=== PATIENT | female | born 1965 | race Caucasian/White ===

== ENCOUNTER 2019-03-26 | Emergency (ER) | payer SELFPAY ==
[2019-03-26] MEDS ORDERED: METOPROL TAR25 MG PO (16:29)
[2019-03-26] MEDS ORDERED: ESCITALOPRAM OX10 MG PO (16:30)
[2019-03-26] MEDS ORDERED: XANAX0.25 MG PO (16:30)
[2019-03-26] MEDS ORDERED: SYMBICORT1 AE1 IN (16:31)
[2019-03-26] MEDS ORDERED: LOSARTAN POTASS25 MG PO (16:31)
[2019-03-26 17:16] LABS: HEMATOCRIT 41.1 % (37.0-47.0); HEMOGLOBIN 13.1 g/dl (12.0-16.0); IMMATURE GRANULOCYTES 0.4 % (0.0-5.0); MEAN CELL VOLUME 90.3 fL CALC (80.0-100.0); MEAN CORPUSCULAR HGB 28.8 pG CALC (26.0-32.0); MEAN CORPUSCULAR HGB CONC 31.9 g/L CALC (32.0-36.0); NEUT# 7.2 thou/uL (2.00-7.15); RED BLOOD COUNT 4.55 mill/uL (4.20-5.60); RED CELL DISTRI WIDTH 12.8 % (11.5-15.5)
[2019-03-26 17:44] LABS: ANION GAP 12 (6-22 (CALC)); BUN 18 mg/dL (7-17); BUN/CREATININE RATIO 19 (12-20 (CALC)); CARBON DIOXIDE 31 mmol/l (22-30); CHLORIDE 102 mmol/l (95-108); CREATININE 0.9 mg/dL (0.5-1.0); GFR > 60 ML/MIN (>=60 (CALC)); GFR FOR AFR.AMER. > 60 ML/MIN (>=60 (CALC)); POTASSIUM 5.1 mmol/l (3.5-5.1); SODIUM 140 mmol/l (137-146)
[2019-03-26] MEDS ORDERED: CYCLOBENZAPR5 MG PO (18:14)
== END 2019-03-26 18:20 | disposition home or self-care (01) | DRG 103 ==
PROVIDERS: Family Medicine
DX: R51 Headache (principal); I10 Essential (primary) hypertension; I48.91 Unspecified atrial fibrillation

== ENCOUNTER 2019-04-27 | Emergency (ER) | payer SELFPAY ==
[~2019-04-27] MED LIST: CYCLOBENZAPR5 MG PO; ESCITALOPRAM OX10 MG PO; LOSARTAN POTASS25 MG PO; METOPROL TAR25 MG PO; SYMBICORT1 AE1 IN; XANAX0.25 MG PO
[2019-04-27 14:56] LABS: HEMATOCRIT 39.7 % (37.0-47.0); IMMATURE GRANULOCYTES 0.3 % (0.0-5.0); MEAN CELL VOLUME 88.4 fL CALC (80.0-100.0); MEAN CORPUSCULAR HGB CONC 32.7 g/L CALC (32.0-36.0); NEUT# 3.87 thou/uL (2.00-7.15); RED BLOOD COUNT 4.49 mill/uL (4.20-5.60); RED CELL DISTRI WIDTH 13.2 % (11.5-15.5)
[2019-04-27 15:18] LABS: ALBUMIN 4.1 g/dL (3.2-5.0); ALKALINE PHOSPHATASE 81 u/l (38-126); ANION GAP 9 (6-22 (CALC)); BILIRUBIN, TOTAL 0.5 mg/dL (0.0-1.4); BUN 13 mg/dL (7-17); BUN/CREATININE RATIO 17 (12-20 (CALC)); CARBON DIOXIDE 31 mmol/l (22-30); CHLORIDE 103 mmol/l (95-108); CREATININE 0.8 mg/dL (0.5-1.0); GFR > 60 ML/MIN (>=60 (CALC)); GFR FOR AFR.AMER. > 60 ML/MIN (>=60 (CALC)); POTASSIUM 4.4 mmol/l (3.5-5.1); SGOT/AST 32 u/l (14-36); SODIUM 139 mmol/l (137-146); TOTAL PROTEIN 7.3 g/dL (6.3-8.2)
[2019-04-27] MEDS ORDERED: DOXYCYCL HYC100 M4 PO (15:52)
[2019-04-27] MEDS ORDERED: PROVENTIL108 MCG/AC PO (15:52)
[2019-04-27] MEDS ORDERED: PREDNISONE50 MG PO (15:52)
== END 2019-04-27 16:25 | disposition home or self-care (01) | DRG 203 ==
PROVIDERS: Family Medicine
DX: J40 Bronchitis, not specified as acute or chronic (principal); R07.9 Chest pain, unspecified; I10 Essential (primary) hypertension; I48.91 Unspecified atrial fibrillation